=== PATIENT | female | born 1995 | race Caucasian/White ===

== ENCOUNTER 2016-12-08 22:50 | Emergency (ER) | payer BC, OTHER ==
[~2016-12-08] VITALS: Ht 154.9 cm; Wt 54.4 kg
[2016-12-08 22:54] VITALS: BP 119/72
--- NOTE | 2016-12-09 01:06 | NUR ---
PT TAKEN TO BED 6
[2016-12-09] MEDS ORDERED: KETOROLAC 30 MG/ML VIAL IM ONE (01:25)
--- NOTE | 2016-12-09 01:28 | NUR ---
PATIENT PRESENTS TO ED WITH CP [id number] . PT STATES THE PAIN ONLY COMES WHEN SHE TAKES A DEEP BREATH AND SUBSIDES WHEN HOLDING BREATH. PT STATES SHE BEGAN FEELING THE PAIN WHILE DRIVING HOME AND THE PAIN WENT AWAY IN AN HOUR. PATIENT ALSO REPORTING DIARRHEA X6 YESTERDAY . DENIES N/V; SKIN IS PINK/WARM/DRY; AAOX4 WITH EVEN AND STEADY GAIT; LUNGS CLEAR BL; HR EVEN AND REGULAR; PT DENIES ANY FEVER, SOB, OR COUGH AT THIS TIME; PATIENT STATES PAIN OF 9/10 AT THIS TIME; VSS; PATIENT POSITIONED FOR COMFORT; HOB ELEVATED; BEDRAILS UP X2; BED DOWN. ER MD MADE AWARE OF PT STATUS. MOM AT BEDSIDE
--- NOTE | 2016-12-09 02:27 | NUR ---
X-Ray at bedside.
[2016-12-09 03:01] VITALS: BP 104/67
== END 2016-12-09 03:00 | disposition home or self-care (01) ==
LOC: MED 22:50
DX: R07.89 Other chest pain (principal)
CPT/HCPCS: 36415; 71010; 81025; 84484; 93005; 96372; 99285; J1885; Q0092

== ENCOUNTER 2017-07-01 19:26 | Emergency (ER) | payer BC, MEDICAID ==
[~2017-07-01] VITALS: Ht 154.9 cm; Wt 63.0 kg
[2017-07-01 19:39] VITALS: BP 106/67
--- NOTE | 2017-07-01 20:59 | NUR ---
PT TAKEN TO BED 4
--- NOTE | 2017-07-01 21:07 | NUR ---
Dr. Cox evaluating patient at bedside.
[2017-07-01 21:23] VITALS: BP 131/71
--- NOTE | 2017-07-01 21:24 | NUR ---
21Y/F PT. PRESENTS TO ED WITH C/O FEVER WITH GENERALIZED BODY PAIN X 2 DAYS. AAO X4, AMBULATORY WITH STEADY GAIT. RESPIRATIONS ROOM AIR, EVEN AND UNLABORED. C/O BODY PAIN 5/10. VSS, ER MADE AWARE OF PT. STATUS.
--- NOTE | 2017-07-01 21:25 | NUR ---
Patient discharged with v/s stable. Written and verbal after care instructions given and explained. Patient alert, oriented and verbalized understanding of instructions. Ambulatory with steady gait. All questions addressed prior to discharge. ID band removed. Patient advised to follow up with PMD. Rx of MOTRIN 800MG, AMOXICILLIN 500MG TID given. Patient educated on indication of medication including possible reaction and side effects. Opportunity to ask questions provided and answered.
== END 2017-07-01 21:25 | disposition home or self-care (01) ==
LOC: MED 19:26
DX: J03.90 Acute tonsillitis, unspecified (principal)
CPT/HCPCS: 81002; 81025; 99283

== ENCOUNTER 2017-07-07 19:43 | Emergency (ER) | payer MEDICAID ==
[~2017-07-07] VITALS: Ht 154.9 cm; Wt 63.2 kg
[2017-07-07 19:59] VITALS: BP 113/62
--- NOTE | 2017-07-07 20:52 | NUR ---
PT TAKEN TO BED 9
--- NOTE | 2017-07-07 20:55 | NUR ---
21/F c/o sore throat x1 week. Pt states she was seen here 1 week ago and was given medication but states it is not helping. Pt continues to c/o throat pain. Pt states "I drool a lot a night." Denies any SOB or chest pain. Denies any fever or chills. AOX4, ambulatory with steady gait. VSS.
--- NOTE | 2017-07-07 20:57 | NUR ---
Carson puri in ED - 07/07/[address] at [address] Desir evaluating patient at bedside.
--- NOTE | 2017-07-07 20:58 | NUR ---
Patient being evaluated by Dr. Desir at bedside.
[2017-07-07] MEDS ORDERED: DEXAMETHASONE 10 MG/ML VIAL PO ONE (21:05)
[2017-07-07] MEDS ORDERED: IBUPROFEN 600 MG TAB PO ONE (21:05)
[2017-07-07 21:58] VITALS: BP 120/68
--- NOTE | 2017-07-07 21:58 | NUR ---
Patient discharged with v/s stable. Written and verbal after care instructions given and explained. Patient alert, oriented and verbalized understanding of instructions. Ambulatory with steady gait. All questions addressed prior to discharge. ID band removed. Patient advised to follow up with PMD. Rx of Naprosyn 500mg given. Patient educated on indication of medication including possible reaction and side effects. Opportunity to ask questions provided and answered.
== END 2017-07-07 21:58 | disposition home or self-care (01) ==
LOC: MED 19:43
DX: J02.9 Acute pharyngitis, unspecified (principal)
CPT/HCPCS: 70360; 99284; J1100

== ENCOUNTER 2023-01-07 17:50 | Emergency (ER) | payer SELFPAY ==
[~2023-01-07] VITALS: Ht 152.4 cm; Wt 66.2 kg
[2023-01-07 18:02] VITALS: BP 95/65
[2023-01-07] MEDS ORDERED: IBUP-2213 PO (19:04)
[2023-01-07] MEDS ORDERED: DICL100G5 TP (19:04)
[2023-01-07 19:52] VITALS: BP 100/62
--- NOTE | 2023-01-07 19:52 | NUR ---
Patient discharged. Written and verbal after care instructions given and explained. Patient alert, oriented and verbalized understanding of instructions. Ambulatory with steady gait. All questions addressed prior to discharge. ID band removed. Patient advised to follow up with PMD. Rx of Ibuprofen and Diclofenac Sodium given. Patient educated on indication of medication including possible reaction and side effects. Opportunity to ask questions provided and answered.
== END 2023-01-07 19:52 | disposition home or self-care (01) ==
LOC: MED 17:50
DX: S46.012A Strain of muscle(s) and tendon(s) of the rotator cuff of left shoulder, initial encounter (principal); E78.00 Pure hypercholesterolemia, unspecified; X58.XXXA Exposure to other specified factors, initial encounter; Y92.89 Other specified places as the place of occurrence of the external cause; Y93.89 Activity, other specified; Y99.8 Other external cause status
CPT/HCPCS: 73030; 99283